=== PATIENT | male | born 1995 | race Caucasian/White ===

== ENCOUNTER 2017-10-24 17:20 | Emergency (ER) | payer OTHER ==
[~2017-10-24] VITALS: Ht 170.2 cm; Wt 75.5 kg
[2017-10-24 17:27] VITALS: TEMP 37; Ht 170.2 cm; Wt 75.5 kg
[2017-10-24] MEDS ORDERED: ACETAMINOPHEN 500 MG TAB PO STA (18:28)
[2017-10-24] MEDS ORDERED: KETOROLAC TROMETHAMINE 60 MG/2 ML VIAL IM STA (18:28)
--- NOTE | 2017-10-24 18:40 | EMERGENCY ROOM VISIT NOTE ---
History Report prepared by Sujey: David Lambert Under the Supervision of: Dr. Hoang Quintana M.D. First contact with patient: 18:22 Chief Complaint: CARDIAC ASSESSMENT Stated Complaint: CHEST PAIN Nursing Triage Summary: Patient presents with c/o left chest pain that he states began about 1 month ago States he "researched stuff and thinks that the lung is a partially collapsed" Denies injury History of Present Illness The patient is a 21 year old W M with no past medical history or surgeries, who presents to the ED with chest pain for one month [employer]. Positive chest pains to his left chest and recent travels over the last two weeks for [address] at a time. He currently rates his pain a 4/10 in severity. Negative shortness of breath, abdominal pain, recent chest injuries, recent heavy lifting, nausea, vomiting, leg pain, leg swelling, or urinary symptoms. The patient notes that he has recently stopped smoking and notes the pain has decreased from a sharp pain to a dull pain since he has quit smoking marijuana. He admits to regularly drinking alcohol. The patient is ambidextrous. He denies any history of blood clots. Source of History: patient Onset: one month [employer] Position: chest (left) Symptom Intensity: 4/10 Quality: sharp, dull Timing: constant Modifying Factors (Relieving): other (stopped smoking marijuana ) Associated Symptoms: + chest pain, No SOB, No nausea, No vomiting, No abdominal pain, No urinary symptoms Note: He denies any chest injuries, recent heavy lifting, leg pain, or leg swelling. Review of Systems See HPI for pertinent positives and negatives. A total of ten systems were reviewed and were otherwise negative. Past Medical & Surgical Medical Problems: (1) PNA (pneumonia) No pertinent past medical and past surgical history reported. Family History No pertinent family history reported. Social History Smoking Status: Former Smoker (of marijuana stopped two weeks ago) Alcohol Use: occasionally Housing Status: lives with family Occupation Status: employed Current/Historical Medications Scheduled PRN Ibuprofen Tab (Advil), 200-600 MG PO Q4H PRN for Pain or Fever Allergies Coded Allergies: No Known Allergies (Unverified , 10/24/17) Physical Exam Vital Signs Date Time Temp Pulse Resp B/P (MAP) Pulse Ox O2 Delivery O2 Flow Rate FiO2 10/24/17 19:40 88 16 116/73 98 10/24/17 19:03 72 10/24/17 18:58 68 16 109/58 96 Room Air 10/24/17 18:58 98 Room Air 10/24/17 17:27 37.0 97 16 130/71 97 Room Air Physical Exam GENERAL: Awake, alert, well-appearing, NAD HENT: Normocephalic, atraumatic. EYES: Normal conjunctiva. Sclera non-icteric. NECK: Supple. No nuchal rigidity. FROM. RESPIRATORY: CTAB, no rhonchi, wheezing, crackles CARDIAC: RRR, no MRG ABDOMEN: Soft, NTND, BS+ MSK: No chest wall TTP, no LE edema NEURO: GCS 15, CN 2-12 intact, moves all 4s on command SKIN: No rash or jaundice noted. Medical Decision & Procedures ER Provider Diagnostic Interpretation: Radiology results as stated below per my review and radiologist interpretation: CHEST ONE VIEW PORTABLE CLINICAL HISTORY: Chest pain. COMPARISON STUDY: No previous studies for comparison. FINDINGS: Lung volumes are normal. Lungs are clear. No pneumothorax or pleural effusion is present. Pulmonary vascularity is normal. Cardiomediastinal silhouette is normal. IMPRESSION: No acute cardiopulmonary findings. Electronically signed by: Arsenio Bojorquez M.D. 10/24/2017 6:44 PM Dictated Date/Time: 10/24/2017 6:44 PM Medications Administered Medications (Trade) Dose Ordered Sig/Felicitas Route Start Time Stop Time Status Last Admin Dose Admin Ketorolac Tromethamine (Toradol Inj) 60 mg NOW STAT IM 10/24/17 18:28 10/24/17 18:29 DC 10/24/17 18:57 60 MG Acetaminophen (Tylenol Tab) 1,000 mg NOW STAT PO 10/24/17 18:28 10/24/17 18:29 DC 10/24/17 18:56 1,000 MG ECG Indication: chest pain Rate (beats per minute): 71 Rhythm: normal sinus Findings: other (Normal intervals, Normal axis, no STS changes, no TWI) ED Course 1821: The patient was evaluated in room C7. A complete history and physical exam was performed. 1914: I reassessed the patient. He is feeling better. I discussed the results and treatment plan with the patient. I answered all pertaining questions that he had. He expressed understanding and verbalized agreement. The patient will be discharged home. Medical Decision The patient is a 21 year old W M with no past medical history or surgeries who presents to the ED with a chest pain for one month [employer]. Differential diagnosis: Etiologies such as cardiac ischemia, aortic dissection, pulmonary embolism, pneumonia, pneumothorax, musculoskeletal, infections, pericarditis, myocarditis , esophageal rupture, gastrointestinal, as well as others were entertained. Patient was seen and evaluated the bedside. Patient has complained of some left -sided chest pain which she says is intermittent and ranges between dull and sharp. Patient is not noticed any thing that makes it better or worse. Patient not taking anything for the pain. Patient states that he researched his symptoms on [employer] and he thought it may be related to his marijuana smoking and/or a partially collapsed lung. Patient denies any cough, fevers, chills. Patient has had recent car trips over however these would've been more recent than when his symptom onset began. Patient is PERC negative. Patient less likely PE. Patient had an EKG that was completed which is nonischemic. Troponin was not ordered at this time. Given the patient's history and physical exam this less likely to be ACS. Patient does not complain of any recent injuries. Patient otherwise is very well-appearing. Patient did receive medications for his pain. Patient was informed of all findings. Patient was very well-appearing and not tachypneic nor tachycardic. Patient was told to continue abstaining from smoking marijuana. Patient was deemed suitable for outpatient follow-up and treatment. Patient was agreeable to this plan. Patient was given strict follow-up, discharge, and return precautions. All questions were answered. Patient was deemed suitable for outpatient follow-up at this time. Patient agreed with the plan of care and was safely discharged home. Medication Reconcilliation Current Medication List: was personally reviewed by me Blood Pressure Screening Patient's blood pressure: Normal blood pressure Impression Primary Impression: Chest pain Scribe Attestation The scribe's documentation has been prepared under my direction and personally reviewed by me in its entirety. I confirm that the note above accurately reflects all work, treatment, procedures, and medical decision making performed by me. Departure Information Dispostion Home / Self-Care Referrals No Doctor, Assigned (PCP) Forms IMPORTANT VISIT INFORMATION Patient Instructions Chest Pain - [facility], [facility] Additional Instructions Please return to the emergency department if you have worsening or recurrent symptoms not amenable to at-home treatment. Please call for a follow-up appointment with her primary care physician. Please take your medications as prescribed. If you have other concerns and/or complaints please feel free to also call your primary care physician's office or return the ED for further evaluation, management, and treatment. You may take 600 mg Ibuprofen every 6 hours as needed for pain with food for no more than 2 consecutive days. You may take tylenol 1000 mg every 6 hours as needed for pain. You may take motrin and tylenol separately or at the same time. You have been examined and treated today on an emergency basis only. This is not a substitute for, or an effort to provide, complete comprehensive medical care. It is impossible to recognize and treat all injuries or illnesses in a single emergency department visit. It is therefore important that you follow up closely with [facility], your PCP, and/or your specialist(s). Call as soon as possible for an appointment. Thank you for your time and consideration. I look forward to speaking with you again soon. Please don't hesitate to call us if you have any questions. Problem Qualifiers Primary Impression: Chest pain Chest pain type: unspecified Qualified Codes: R07.9 - Chest pain, unspecified
--- NOTE | 2017-10-24 18:45 | DIAGNOSTIC IMAGING REPORT ---
CHEST ONE VIEW PORTABLE CLINICAL HISTORY: Chest pain. COMPARISON STUDY: No previous studies for comparison. FINDINGS: Lung volumes are normal. Lungs are clear. No pneumothorax or pleural effusion is present. Pulmonary vascularity is normal. Cardiomediastinal silhouette is normal. IMPRESSION: No acute cardiopulmonary findings. Electronically signed by: Arsenio Bojorquez M.D. 10/24/2017 6:44 PM Dictated Date/Time: 10/24/2017 6:44 PM
[2017-10-24] MEDS ORDERED: IBUP-103 PO (18:48)
[2017-10-24 18:58] VITALS: O2SAT 98
[2017-10-24 19:40] VITALS: BP 116/73; PULSE 88; O2SAT 98
== END 2017-10-24 19:40 | disposition home or self-care (01) ==
LOC: C.EDB 17:22 → C.EDC 19:40
DX: R07.9 Chest pain, unspecified (principal); Z87.891 Personal history of nicotine dependence; Z87.01 Personal history of pneumonia (recurrent)